=== PATIENT | female | born 1990 | race Hispanic/Latino ===

== ENCOUNTER 2018-04-12 10:51 | Emergency (ER) | payer SELFPAY ==
[2018-04-12 11:50] LABS: APPEARANCE,URINE Cloudy (CLEAR); BILIRUBIN,URINE Small (NEGATIVE); COLOR,URINE Dark Yellow (YELLOW); GLUCOSE, URINE (UA) Negative (NEGATIVE); KETONES,URINE 15 mg/dL (NEGATIVE); LEUKOCYTE ESTERASE ,URINE Small (NEGATIVE); NITRATE,URINE Positive (NEGATIVE); OCCULT BLOOD,URINE Nonhemolyzed Trace (NEGATIVE); PH,URINE 5.5 (5.0-8.0); PROTEIN,URINE Trace (NEGATIVE)
[2018-04-12 11:53] LABS: HCG,QUAL RESULT NEGATIVE (NEGATIVE)
[2018-04-12] MEDS ORDERED: LIDOCAINE HCL-MPF 1% 2ML VIAL ONE (12:37)
[2018-04-12] MEDS ORDERED: CEFTRIAXONE SODIUM 1 GM ONE (12:37)
[2018-04-12 12:41] LABS: RBC,URINE 0-1 /HPF (0-1)
[2018-04-12 12:42] LABS: BACTERIA,URINE Few /HPF (None Seen); MUCUS,URINE Few LPF (None Seen); SQUAMOUS EPITHELIAL CELL,UR Moderate /HPF (0-2)
== END 2018-04-12 13:20 | disposition home or self-care (01) ==
LOC: EDH 10:51
DX: N30.00 Acute cystitis without hematuria (principal)
CPT/HCPCS: 81001; 81025; 96372; 99283; J0696; J3490